=== PATIENT | male | born 1955 | race Caucasian/White ===

== ENCOUNTER → 2023-09-23 | Outpatient (CLI) | payer BC ==
--- NOTE | 2023-09-23 13:31 | P.PAINPG ---
PQRS Measure Charge Sheet Comment: HISTORY OF PRESENT ILLNESS: A 68 yr old male as a referral from Dr Goodwin presents today w severe and chronic LBP x 1 yr secondary to DDD, spondylosis and facet arthropathy without myelopathy for evaluation. Pt states pain level is provoked at 7 /10 in intensity, constant, localized in the lumbar spine, predominantly axial, achy in character w occasional shooting pain towards the BL hips, R> L. Pain is provoked by twisting. Pain is alleviated by medications (Neurontin, Ibu), Pt x 6 wks which ended in Aug 2023, alternating heat & ice, repositioning and rest. PMH: OA, Asthma, HTN, CHF, GERD, BPH PSH: Tonsillectomy, Nephrolithiasis, L Ankle Surgery, L Foot Reconstruction, R Great Toe Surgery SH: Negative x3. Ret[employer] FH: Mo- Lymphoma. Fa- CVA. All: See list Meds: See list REVIEW OF ORGAN SYSTEMS: CONSTITUTIONAL: No fevers or chills. No recent weight loss. NEUROLOGICAL: + numbness and tingling along the distal extremities. No seizure disorders or headaches. MUSCULOSKELETAL: + pain PSYCHIATRIC: Denies current depression or suicidal thoughts. Physical Examinations : Constitutional : Cooperative , not in acute distress . Neurologic : Cranial nerve II to XII intact. No focal neurological deficits. Psychiatric : alert & oriented x 3. Matching mood & appropriate affect. Judgment & insight intact. Musculoskeletal : Cervical Spine Motor strength in the deltoid and biceps: Normal right side. Normal Left side Motor strength biceps and the wrist extensors: Normal right side . Normal left side Motor strength in the triceps muscle: Normal right side. Normal left side Deep tendon reflexes: Normal at the biceps. Normal at Brachioradialis. Normal at triceps Vertebral body tenderness to deep palpation over Cervical facet loading test: positive bilaterally Spurling test: positive bilaterally Neck distraction test: positive bilaterally Alee sign: positive bilaterally Lumbar spine Motor strength lower extremities ,thigh and legs 5/5 Right side , 5/5 Left side Deep tendon reflexes : Normal Knee Jerk. Normal Ankle Jerk Vertebral body tenderness over L3 Darling Test positive over L2-L3 Lumbar facet Loading Test: positive Right / positive Left Range of motion of the lumbar spine Flexion 30 degrees, extension 10 degrees Straight Leg Raise test: Left/ Right positive at degree Nathen test: positive right / positive left. Severe tenderness over the Sacroiliac joint on the Right / Left sides Gaenslen test: positive bilaterally Seated flexion test: positive bilaterally. Sacral spine : Severe tenderness over the Sacroiliac joint: right side / left side Range of motion: Flexion of the lumbar spine <60 degrees Range of motion: Extension of the lumbar spine <20 degrees Gaenslen's Test positive Nathen test: positive right side / left side Thigh Thrust Test Sacral Thrust Test Imaging: MRI noncontrast of the lumbar spine from 04/11/23 reviewed Assessment/ Plan : Lumbar DDD Recommendation of VANNESA L2-L3 #1. May need a series of injections for optimal pain relief. Risks, benefits of procedure discussed and patient verbalized understanding. Admits to anti- coagulant use or medical history of diabetes. Protocol for discontinuation/ continuation of medications cynthia procedure discussed. All questions answered. I have spent greater than 30 minutes on patient care today. Dr Serrano was available by phone for the evaluation of this patient. The time was used to review the medical records including relevant urine studies and Prescription history (MAPs), review of the available imaging, evaluation and examination of the patient, coordination of care with the medical staff and if applicable referring physicians, as well as creation of the medical record Controlled Substance Measures - Controlled Substance Measures Is patient prescribed a controlled substance at discharge?: No
[2023-09-23 13:51] VITALS: BP 156/97; PULSE 87; RESP 15; TEMP 98.1
== END ==
LOC: PNWHC3 12:43
PROVIDERS: ATTEND Specialist
DX: M51.16 Intervertebral disc disorders with radiculopathy, lumbar region (principal); M19.90 Unspecified osteoarthritis, unspecified site; J45.909 Unspecified asthma, uncomplicated; I11.0 Hypertensive heart disease with heart failure; I50.9 Heart failure, unspecified; N40.0 Benign prostatic hyperplasia without lower urinary tract symptoms; K21.9 Gastro-esophageal reflux disease without esophagitis
CPT/HCPCS: 99211

== ENCOUNTER → 2023-10-09 | Day surgery (SDC) | payer BC ==
[~2023-10-09] MED LIST: IOPAMIDOL M200 10 ML VIAL ONE; LACTATED RINGERS 1,000 ML IV SCH; ROPIVACAINE 5MG/ML 20ML VIAL ONE; methylPREDNISolone ACETATE 80 MG/ML 1 ML VIAL ONE
[2023-10-09 08:43] VITALS: TEMP 97.3
--- NOTE | 2023-10-09 09:07 | P.PCN ---
Description of Procedure: PREOPERATIVE DIAGNOSIS: 1- Lumbar Degenerative Disc Diseases 2-Lumbar spondylosis with Facet arthropathy without myelopathy. 3-lumbar spinal stenosis POSTOPERATIVE DIAGNOSIS: 1-lumbar degenerative disc disease. 2-lumbar spondylosis with facet arthropathy without myelopathy. 3-lumbar spinal stenosis. PROCEDURE Injection of radial contrast material into L2-3 interspace, interpretation of epidurogram, injection of steroid at L2-3 epidural space under fluoroscopic guidance. ANESTHESIA: Lidocaine 1% subcutaneously. In OR continuous pulse ox, EKG, blood pressure and volleyball complication was maintained with the patient. EBL: Minimal PROCEDURE INDICATION: Before the procedure were discussed with the patient det brittany procedure, alternatives, complications including infection, bleeding, nerve damage, paralysis all of which could be permanent. Patient understands and all questions were answered. PROCEDURE DESCRIPTION : After getting consent, patient in OR in prone position. Back was prepped with chlorhexidine and draped in sterile fashion. After injecting 10 mL of 1% lidocaine subcutaneously, a 20-gauge Tuohy needle was introduced at L2-3 interspace with loss of resistance technique using a syringe filled with air. Negative CSF, negative blood, negative paresthesia. Needle position was confirmed with AP and lateral view of the fluoroscope. After repeat negative aspiration 2 mL of Omnipaque 200 water soluble contrast was injected. Contrast was noted in the epidural space. No contrast was noted into intrathecal or intravascular space. After repeat negative aspiration 6 mL solution was injected intermittently which consists of 5 mL of preservative-free normal saline mixed with 1 mL of 80 mg Depo-Medrol. Needle was withdrawn intact. Skin was cleansed and Band-Aids was applied. DISPOSITION / PLANS: The patient tolerated the procedure well. No complication. The patient was placed in a supine position and transferred to the recovery area in a stable condition for observation. There was no evidence of lower extremity motor or sensory deficit after the procedure. Patient was discharged from the recovery room after meeting discharge criteria. Home discharge instructions were given to the patient by the staff. The patient was reexamined prior to discharge. The patient will schedule a follow up in the clinic in 2-4 weeks.
[2023-10-09 09:14] VITALS: BP 129/89; PULSE 60; RESP 14
--- NOTE | 2023-10-09 10:33 | FL ---
EXAMINATION TYPE: FL guided pain mgmt statistic Intraoperative/procedural fluoroscopic services were provided. Total fluoroscopy time is 30 seconds with a total of 2 submitted images to PACS. Please see the operative/procedural note for further details. DAP: [id number] mGym2
== END ==
LOC: ORPAIN 07:59
PROVIDERS: ATTEND Pain Medicine Interventional Pain Medicine
DX: M51.36 Other intervertebral disc degeneration, lumbar region (principal); M47.816 Spondylosis without myelopathy or radiculopathy, lumbar region; M48.061 Spinal stenosis, lumbar region without neurogenic claudication; Z88.1 Allergy status to other antibiotic agents
CPT/HCPCS: 62323; J1040; Q9966; J2795

== ENCOUNTER → 2023-11-06 | Outpatient (CLI) | payer BC ==
[2023-11-06 10:06] VITALS: BP 128/74; PULSE 76; RESP 15; TEMP 98.4
--- NOTE | 2023-11-06 13:53 | P.PAINPG ---
Objective - Vital Signs Vital signs: Intake & Output 11/05/23 11/06/23 11/06/23 18:59 06:59 18:59 Weight 220 kg PQRS Measure Charge Sheet Comment: HISTORY OF PRESENT ILLNESS: A 68 yr old male presents today w severe and chronic LBP x 1 yr secondary to DDD, spondylosis and facet arthropathy without myelopathy for evaluation s/p VANNESA L2-L3 #1. Pt states he experienced 60% pain relief x 1 wks s/p procedure. Pt states pain level is provoked at 7 /10 in intensity, constant, localized in the lumbar spine, predominantly axial, achy in character without shooting pain. Pain is provoked by twisting. Pain is alleviated by medications, PT x 6 wks which ended in Aug 2023, alternating heat & ice, repositioning and rest. Oswestry axial pain score of 26. Interventional procedures include VANNESA L2-L3 x1 Medications include Neurontin, Ibu REVIEW OF ORGAN SYSTEMS: CONSTITUTIONAL: No fevers or chills. No recent weight loss. NEUROLOGICAL: + numbness and tingling along the distal extremities. No seizure disorders or headaches. MUSCULOSKELETAL: + pain PSYCHIATRIC: Denies current depression or suicidal thoughts. Physical Examinations : Constitutional : Cooperative , not in acute distress . Neurologic : Cranial nerve II to XII intact. No focal neurological deficits. Psychiatric : alert & oriented x 3. Matching mood & appropriate affect. Judgment & insight intact. Musculoskeletal : Cervical Spine Motor strength in the deltoid and biceps: Normal right side. Normal Left side Motor strength biceps and the wrist extensors: Normal right side . Normal left side Motor strength in the triceps muscle: Normal right side. Normal left side Deep tendon reflexes: Normal at the biceps. Normal at Brachioradialis. Normal at triceps Vertebral body tenderness to deep palpation over Cervical facet loading test: positive bilaterally Spurling test: positive bilaterally Neck distraction test: positive bilaterally Alee sign: positive bilaterally Lumbar spine Motor strength lower extremities ,thigh and legs 5/5 Right side , 5/5 Left side Deep tendon reflexes : Normal Knee Jerk. Normal Ankle Jerk Vertebral body tenderness Darling Test positive Lumbar facet Loading Test: positive BL L4-L5, L5-S1 Range of motion of the lumbar spine Flexion 30 degrees, extension 10 degrees Straight Leg Raise test: Left/ Right positive at degree Nathen test: positive right / positive left. Severe tenderness over the Sacroiliac joint on the Right / Left sides Gaenslen test: positive bilaterally Seated flexion test: positive bilaterally. Sacral spine : Severe tenderness over the Sacroiliac joint: right side / left side Range of motion: Flexion of the lumbar spine <60 degrees Range of motion: Extension of the lumbar spine <20 degrees Gaenslen's Test positive Nathen test: positive right side / left side Thigh Thrust Test Sacral Thrust Test Imaging: MRI noncontrast of the lumbar spine from 04/11/23 reviewed Assessment/ Plan : Lumbar DDD Recommendation of BL MBB L3-L5 #1.. May need a series of injections, up until RFA, for optimal pain relief. Risks, benefits of procedure discussed and patient verbalized understanding. Admits to anti- coagulant use or medical history of diabetes. Minimal anesthesia including Versed and Fentanyl may be provided if clinically indicated. Protocol for discontinuation/ continuation of medications cynthia procedure discussed. All questions answered. I have spent greater than 30 minutes on patient care today. Dr Serrano was available by phone for the evaluation of this patient. The time was used to review the medical records including relevant urine studies and Prescription history (MAPs), review of the available imaging, evaluation and examination of the patient, coordination of care with the medical staff and if applicable referring physicians, as well as creation of the medical record PQRS Narrative: Hx Alcohol Use (MH) No Home Medications: Ambulatory Orders Budesonide-Formot 160-4.5 Mcg [Symbicort 160-4.5 Mcg Inhaler] 2 puff INHALATION DAILY PRN 10/07/23 Ibuprofen [Motrin Ib] 400 mg PO Q6H PRN 10/07/23 Multivitamins, Thera [Multivitamin (formulary)] 1 tab PO QAM 10/07/23 Tamsulosin HCl [Flomax] 0.4 mg PO QAM 10/07/23 Vit C/E/Zn/Coppr/Lutein/Zeaxan [Preservision Areds 2 Softgel] 1 cap PO QAM 10/07/23 hydroCHLOROthiazide 25 mg PO QAM 10/07/23 Controlled Substance Measures - Controlled Substance Measures Is patient prescribed a controlled substance at discharge?: No
== END ==
LOC: PNWHC3 09:20
PROVIDERS: ATTEND Specialist
DX: M47.817 Spondylosis without myelopathy or radiculopathy, lumbosacral region (principal); M51.37 Other intervertebral disc degeneration, lumbosacral region; Z88.1 Allergy status to other antibiotic agents
CPT/HCPCS: 99211

== ENCOUNTER 2023-11-14 07:11 | Day surgery (SDC) | payer BC ==
[2023-11-11 09:58] VITALS: BMI 31.5
[2023-11-14] MEDS: LACTATED RINGERS 1,000 ML IV SCH ×2 (07:59→08:18)
[2023-11-14 08:13] VITALS: RESP 16; TEMP 96.9
[2023-11-14] MEDS ORDERED: MIDAZOLAM 2 MG/2 ML VIAL ONE (08:19)
[2023-11-14] MEDS ORDERED: fentaNYL (PF) 50 MCG/ML 2 ML AMP ONE (08:19)
[2023-11-14] MEDS ORDERED: ROPIVACAINE 5MG/ML 20ML VIAL ONE (08:22)
[2023-11-14] MEDS ORDERED: IV FLUID CONTINUATION 1,000 ML IV ONE (08:46)
--- NOTE | 2023-11-14 08:46 | P.PCN ---
Description of Procedure: Preprocedure diagnosis. 1. Lumbar spondylosis with facet joint arthropathy without myelopathy. 2. Lumbar degenerative disc disease. Postprocedure diagnosis. As above. Procedure done. Bilateral diagnostic block with local anesthetics at L3, L4, L5 medial branch to target the facet joint L4- 5 and L5-S1 with fluoroscopic guidance (fluoroscopy images are available in the radiology department) . Anesthesia. As per anesthesia department. In OR, continuous pulse ox, EKG, blood pressure and verbal communication was maintained. Blood loss. Minimal. Indication. The patient has low back pain secondary to lumbar facet joint arthropathy. Discussed the procedure and alternative and complications which includes infection, bleeding, nerve damage, paralysis ,aggravation of pain. Patient understands and all questions were answered. Patient iunderstands that if any pain relief occurs it will last for a few hours to a few days maximum. Procedure description. After getting consent patient was taken in the OR in prone position. Back prepped with chlorhexidine and draped in sterile fashion. After injecting 5 mL of plain 1% lidocaine subcutaneously, a 22-gauge spinal needle was introduced under tunnel vision of the fluoroscope at the junction of the superior articular process with RIGHT ala of the sacrum. With slight oblique fluoroscope, after injecting 5 mL of plain 1% lidocaine subcutaneously, a 22-gauge spinal needle was introduced under tunnel vision of the fluoroscope at the junction of the superior articular process with RIGHT L5 transverse process, junction of the superior articular process with the RIGHT L4 transverse process. Negative CSF, negative blood, negative paresthesia. After needle po sition confirmation by AP and crosstable lateral view, after negative aspiration, half milliliters of 0.5% ropivacaine were injected at each point. In exactly same way, LEFT sided injections were done at the following 3 points. Junction of the superior articular process with left ala of the sacrum, junction of the superior articular process with the left L5 transverse process, junction of the superior articular process with left L4 transverse process using 0.5 mL of 0.5% preservative-free ropivacaine at each point. Spinal needles were taken out and bandages were applied. Disposition. Patient tolerated the procedure well. No complication. Discharged home in stable condition.
--- NOTE | 2023-11-14 09:20 | FL ---
Fluoroscopy INDICATION: Pain FINDINGS: Fluoroscopy time: 1 minute 18 seconds. Total dose area product (DAP) in uGy*m?, mGy*cm? (or similar): 0.42151 Images obtained: 4. IMPRESSION: 1. Documentation of fluoroscopy.
[2023-11-14 09:34] VITALS: BP 142/92; PULSE 57
== END 2023-11-14 09:30 | disposition home or self-care (01) ==
LOC: ORPAIN 07:11
PROVIDERS: ATTEND Pain Medicine Interventional Pain Medicine
DX: M47.816 Spondylosis without myelopathy or radiculopathy, lumbar region (principal); M51.36 Other intervertebral disc degeneration, lumbar region; I10 Essential (primary) hypertension; J45.909 Unspecified asthma, uncomplicated; G47.33 Obstructive sleep apnea (adult) (pediatric); Z79.899 Other long term (current) drug therapy; Z79.51 Long term (current) use of inhaled steroids
CPT/HCPCS: 64493; 64494 ×2; J2250; J3010; J2795

== ENCOUNTER → 2023-12-01 | Outpatient (CLI) | payer BC ==
[2023-12-01 08:34] VITALS: BP 134/84; PULSE 91; RESP 15; TEMP 98.5
--- NOTE | 2023-12-01 14:35 | P.PAINPG ---
PQRS Measure Charge Sheet Comment: HISTORY OF PRESENT ILLNESS: A 68 yr old male presents today w severe and chronic LBP x 1 yr secondary to DDD, spondylosis and facet arthropathy without myelopathy for evaluation s/p BL MBB L3-L5 #1. Pt states he experienced 80 % pain relief x 1 wk s/p procedure. Pt states pain level is provoked at 6 /10 in intensity, constant, localized in the lumbar spine, predominantly axial, achy in character without shooting pain. Pain is provoked by twisting. Pain is alleviated by medications, PT x 6 wks which ended in Aug 2023, alternating heat & ice, repositioning and rest. Oswestry axial pain score of 25. Interventional procedures include AVNNESA L2-L3 x1, BL MBB L3-L5 x1 Medications include Neurontin, Ibu REVIEW OF ORGAN SYSTEMS: CONSTITUTIONAL: No fevers or chills. No recent weight loss. NEUROLOGICAL: + numbness and tingling along the distal extremities. No seizure disorders or headaches. MUSCULOSKELETAL: + pain PSYCHIATRIC: Denies current depression or suicidal thoughts. Physical Examinations : Constitutional : Cooperative , not in acute distress . Neurologic : Cranial nerve II to XII intact. No focal neurological deficits. Psychiatric : alert & oriented x 3. Matching mood & appropriate affect. Judgment & insight intact. Musculoskeletal : Cervical Spine Motor strength in the deltoid and biceps: Normal right side. Normal Left side Motor strength biceps and the wrist extensors: Normal right side . Normal left side Motor strength in the triceps muscle: Normal right side. Normal left side Deep tendon reflexes: Normal at the biceps. Normal at Brachioradialis. Normal at triceps Vertebral body tenderness to deep palpation over Cervical facet loading test: positive bilaterally Spurling test: positive bilaterally Neck distraction test: positive bilaterally Alee sign: positive bilaterally Lumbar spine Motor strength lower extremities ,thigh and legs 5/5 Right side , 5/5 Left side Deep tendon reflexes : Normal Knee Jerk. Normal Ankle Jerk Vertebral body tenderness Darling Test positive Lumbar facet Loading Test: positive BL L4-L5, L5-S1 Range of motion of the lumbar spine Flexion 30 degrees, extension 10 degrees Straight Leg Raise test: Left/ Right positive at degree Nathen test: positive right / positive left. Severe tenderness over the Sacroiliac joint on the Right / Left sides Gaenslen test: positive bilaterally Seated flexion test: positive bilaterally. Sacral spine : Severe tenderness over the Sacroiliac joint: right side / left side Range of motion: Flexion of the lumbar spine <60 degrees Range of motion: Extension of the lumbar spine <20 degrees Gaenslen's Test positive Nathen test: positive right side / left side Thigh Thrust Test Sacral Thrust Test Imaging: MRI noncontrast of the lumbar spine from 04/11/23 reviewed Assessment/ Plan : Lumbar DDD Recommendation of BL MBB L3-L5 #2. May need a series of injections, up until RFA, for optimal pain relief. Risks, benefits of procedure discussed and patient verbalized understanding. Admits to anti- coagulant use or medical history of diabetes. Minimal anesthesia including Versed and Fentanyl may be provided if clinically indicated. Protocol for discontinuation/ continuation of medications cynthia procedure discussed. All questions answered. I have spent greater than 30 minutes on patient care today. Dr Serrano was available by phone for the evaluation of this patient. The time was used to review the medical records including relevant urine studies and Prescription history (MAPs), review of the available imaging, evaluation and examination of the patient, coordination of care with the medical staff and if applicable referring physicians, as well as creation of the medical record PQRS Narrative: Hx Alcohol Use (MH) No Home Medications: Ambulatory Orders Budesonide-Formot 160-4.5 Mcg [Symbicort 160-4.5 Mcg Inhaler] 2 puff INHALATION DAILY PRN 10/07/23 Ibuprofen [Motrin Ib] 400 mg PO Q6H PRN 10/07/23 Multivitamins, Thera [Multivitamin (formulary)] 1 tab PO QAM 10/07/23 Tamsulosin HCl [Flomax] 0.4 mg PO QAM 10/07/23 Vit C/E/Zn/Coppr/Lutein/Zeaxan [Preservision Areds 2 Softgel] 1 cap PO QAM 10/07/23 hydroCHLOROthiazide 25 mg PO QAM 10/07/23 Fluticasone Nasal Jay [Flonase Nasal Jay] 1 spray NASAL DAILY 11/14/23 Gabapentin [Neurontin] 300 mg PO BID 11/14/23 Controlled Substance Measures - Controlled Substance Measures Is patient prescribed a controlled substance at discharge?: No
== END ==
LOC: PNWHC3 07:40
PROVIDERS: ATTEND Specialist
DX: M51.37 Other intervertebral disc degeneration, lumbosacral region (principal); Z88.8 Allergy status to other drugs, medicaments and biological substances
CPT/HCPCS: 99211

== ENCOUNTER 2023-12-12 07:34 | Day surgery (SDC) | payer BC ==
[2023-12-12] MEDS: LACTATED RINGERS 1,000 ML IV SCH (08:06)
[2023-12-12 08:17] VITALS: TEMP 97.5
[2023-12-12] MEDS ORDERED: fentaNYL (PF) 50 MCG/ML 2 ML AMP ONE (09:01)
[2023-12-12] MEDS ORDERED: MIDAZOLAM 2 MG/2 ML VIAL ONE (09:01)
[2023-12-12] MEDS ORDERED: ROPIVACAINE 5MG/ML 20ML VIAL ONE (09:03)
[2023-12-12] MEDS ORDERED: methylPREDNISolone ACETATE 40 MG/ML 1 ML VIAL ONE (09:03)
[2023-12-12] MEDS: LACTATED RINGERS 1,000 ML IV ONE (09:25)
--- NOTE | 2023-12-12 09:31 | P.PCN ---
Description of Procedure: Preprocedure diagnosis. 1. Lumbar spondylosis with facet joint arthropathy without myelopathy. 2. Lumbar degenerative disc disease. Postprocedure diagnosis. As above. Procedure done. Bilateral diagnostic block with local anesthetics at L3, L4, L5 medial branch to target the facet joint L4- 5 and L5-S1 with fluoroscopic guidance (fluoroscopy images are available in the radiology department) . Anesthesia. As per anesthesia department/ Moderate sedation with intravenous Versed 2 mg and fentanyl and local infiltration with local anesthetics. In OR, continuous pulse ox, EKG, blood pressure and verbal communication was maintained. Blood loss. Minimal. Indication. The patient has low back pain secondary to lumbar facet joint arthropathy. Discussed the procedure and alternative and complications which includes infection, bleeding, nerve damage, paralysis ,aggravation of pain. Patient understands and all questions were answered. Patient iunderstands that if any pain relief occurs it will last for a few hours to a few days maximum. Procedure description. After getting consent patient was taken in the OR in prone position. Back prepped with chlorhexidine and draped in sterile fashion. After injecting 5 mL of plain 1% lidocaine subcutaneously, a 22-gauge spinal needle was introduced under tunnel vision of the fluoroscope at the junction of the superior articular process with RIGHT ala of the sacrum. With slight oblique fluoroscope, after injecting 5 mL of plain 1% lidocaine subcutaneously, a 22-gauge spinal needle was introduced under tunnel vision of the fluoroscope at the junction of the superior articular process with RIGHT L5 transverse process, junction of the superior articular process with the RIGHT L4 transverse process. Negative CSF, negative blood, negative paresthesia. After needle position confirmation by AP and crosstable lateral view, after negative aspiration, half milliliters of solution were injected at each point. Total 1- 1/2 mL of solution was injected on the right side which consists of 0.5% ropivacaine mixed with 20 mg of Depo-Medrol. In exactly same way, LEFT sided injections were done at the following 3 points. Junction of the superior articular process with left ala of the sacrum, junction of the superior articular process with the left L5 transverse process, junction of the superior articular process with left L4 transverse process using 0.5 mL of solution at each point. Total 1-1/2 mL of solution was injected on the left side which consists of 0.5% ropivacaine mixed with 20 mg of Depo-Medrol. Spinal needles were taken out and bandages were applied. Disposition. Patient tolerated the procedure well. No complication. Discharged home in stable condition.
--- NOTE | 2023-12-12 09:46 | FL ---
EXAMINATION TYPE: FL guided pain mgmt statistic Intraoperative/procedural fluoroscopic services were provided. Total fluoroscopy time is 47 seconds with a total of 4 submitted images to PACS. Please see the operative/procedural note for further details. DAP: [id number] mGym2
[2023-12-12 09:53] LABS: Glucose,Whole Blood 115 mg/dL (70-110)
[2023-12-12 09:56] VITALS: BP 141/90; PULSE 58; RESP 16
== END 2023-12-12 10:04 | disposition home or self-care (01) ==
LOC: ORPAIN 07:34
PROVIDERS: ATTEND Pain Medicine Interventional Pain Medicine
DX: M51.36 Other intervertebral disc degeneration, lumbar region (principal); M47.816 Spondylosis without myelopathy or radiculopathy, lumbar region; I10 Essential (primary) hypertension; J45.909 Unspecified asthma, uncomplicated; N20.0 Calculus of kidney; H35.30 Unspecified macular degeneration; H40.9 Unspecified glaucoma; Z79.51 Long term (current) use of inhaled steroids; Z79.899 Other long term (current) drug therapy; Z88.1 Allergy status to other antibiotic agents
CPT/HCPCS: 64493; 64494 ×2; J2250; J1030; J2001; J3010; J2795

== ENCOUNTER 2024-01-13 06:02 | Day surgery (SDC) | payer BC ==
[2024-01-09 09:33] VITALS: BMI 31.5
[2024-01-13] MEDS: LACTATED RINGERS 1,000 ML IV SCH (06:48)
[2024-01-13 06:54] VITALS: TEMP 96.9
[2024-01-13] MEDS ORDERED: ONDANSETRON 4 MG/2 ML VIAL ONE (07:31)
[2024-01-13] MEDS ORDERED: MIDAZOLAM 2 MG/2 ML VIAL ONE (07:36)
[2024-01-13] MEDS ORDERED: ROPIVACAINE 5MG/ML 20ML VIAL ONE (07:36)
--- NOTE | 2024-01-13 07:58 | P.PCN ---
Date of Procedure: 01/13/24 Operative Findings: PREOPERATIVE DIAGNOSIS: Lumbar Facet Arthropathy without myelopathy POSTOPERATIVE DIAGNOSIS: Same PROCEDURES: RIGHT/LEFT Radiofrequency thermocoagulation of L4-5, L5-S1 medial branches, with fluoroscopic guidance ANESTHESIA: Patient re-evaluated immediately prior to sedation Medication Administered by: Nurse Sedation Type: Moderate sedation 2mg versed and 4mg zofran (no fentanyl due to nausea during previous procedure) Sedation Supervision start time: 735 Sedation Supervision end time: 756 EBL: Minimal Imaging: Fluoroscopy was used, images where saved to the medical record PROCEDURE INDICATION: The patient with low back pain secondary to lumbar facet arthropathy who had more than 50% relief of pain with previous diagnostic lumb ar medial branch block with local anesthetic. PROCEDURE DESCRIPTION / TECHNIQUE: The patient was seen and identified in the preoperative area. Risks, benefits, complications, including but not limited to risk of infection, bleeding, allergic reactions to the medications and no complete pain relief, and alternatives were discussed with the patient, the patient agreed to proceed with the procedure and signed the consent. IV was started. Vital signs remained stable throughout the procedure. Patient was taken to the OR and time out was completed. The patient was placed in the prone position on the procedure table. The lumber area was prepped and draped in the usual sterile fashion. Vital signs were closely monitored during the procedure. IV sedation was used during the procedure to decrease patient anxiety. Using AP and then oblique fluoroscopy, the eye of the Brooks dog corresponding to the connection between the superior and transverse articular processes of L4, L5, and sacral Ala were identified, marked, and localized with 1% lidocaine. Subsequently, a 20 [id number] radiofrequency cannula with a 10-mm active tip was advanced guided by fluoroscopy to the junction of the pedicle and transverse process of each identified level. Each site then underwent sensory testing at 50 Hz and 0 to 1 volt and motor testing at 2.5 Hz and 0 to 3 volt with local s timulation, no radicular symptoms sensed by the patient and no obvious motor stimulation noted. Thereafter the tested sites underwent radiofrequency thermocoagulation at 80 degrees celsius for 90 seconds after injecting 2 ml of PF lidocaine 1% at each site. Then after the thermocoagulation was done, 1 ml of the block solution containing ropivaciane 0.5% was injected at the lesioned sites after negative aspiration of CSF and blood and with no paresthesias. Cannulas were retracted. At the end of the procedure, the skin was cleansed and bandages were applied. COMPLICATIONS: No acute complications. DISPOSITION / PLANS: The patient was placed in a supine position and transferred to the recovery area in a stable condition for observation and was discharged from the recovery room after meeting discharge criteria. Home discharge instructions given to the patient by the staff. The patient was reexamined prior to discharge. Patient will follow up as directed.
[2024-01-13] MEDS: IV FLUID CONTINUATION 1,000 ML IV ONE (08:02)
[2024-01-13 08:08] VITALS: RESP 16
[2024-01-13 08:45] VITALS: BP 122/80; PULSE 68
--- NOTE | 2024-01-13 12:09 | FL ---
EXAMINATION TYPE: FL guided pain mgmt statistic Intraoperative/procedural fluoroscopic services were provided. Total fluoroscopy time is 8.1 seconds with a total of 6 submitted images to PACS. Please se e the operative/procedural note for further details. DAP: [id number] mGym2
== END 2024-01-13 08:33 | disposition home or self-care (01) ==
LOC: ORPAIN 06:02
PROVIDERS: ATTEND Hospitalist
DX: M47.816 Spondylosis without myelopathy or radiculopathy, lumbar region (principal); Z88.8 Allergy status to other drugs, medicaments and biological substances
CPT/HCPCS: 64635; 64636 ×2; 99152; J2250; J2795

== ENCOUNTER → 2024-02-02 | Outpatient (CLI) | payer BC ==
[2024-02-02 09:49] VITALS: BP 134/86; PULSE 73; RESP 16; TEMP 98.1
--- NOTE | 2024-02-02 13:56 | P.PAINPG ---
PQRS Measure Charge Sheet Comment: HISTORY OF PRESENT ILLNESS: A 68 yr old male presents today w severe and chronic LBP x 1 yr secondary to DDD, spondylosis and facet arthropathy without myelopathy for evaluation s/p BL RFA L3-L5. Pt states he experienced 75 % pain relief s/p procedure. Pt states pain level is provoked at 6 /10 in intensity, constant, localized in the R lower lumbar spine, predominantly axial, achy in character w shooting pain towards the R buttocks. Pain is provoked by twisting. Pain is alleviated by medications, PT x 6 wks which ended in Aug 2023, alternating heat & ice, repositioning and rest. Oswestry axial pain score of 20. Interventional procedures include VANNESA L2-L3 x1, BL RFA L3-L5 (Jan 2024) Medications include Neurontin, Ibu REVIEW OF ORGAN SYSTEMS: CONSTITUTIONAL: No fevers or chills. No recent weight loss. NEUROLOGICAL: + numbness and tingling along the distal extremities. No seizure disorders or headaches. MUSCULOSKELETAL: + pain PSYCHIATRIC: Denies current depression or suicidal thoughts. Physical Examinations : Constitutional : Cooperative , not in acute distress . Neurologic : Cranial nerve II to XII intact. No focal neurological deficits. Psychiatric : alert & oriented x 3. Matching mood & appropriate affect. Judgment & insight intact. Musculoskeletal : Cervical Spine Motor strength in the deltoid and b iceps: Normal right side. Normal Left side Motor strength biceps and the wrist extensors: Normal right side . Normal left side Motor strength in the triceps muscle: Normal right side. Normal left side Deep tendon reflexes: Normal at the biceps. Normal at Brachioradialis. Normal at triceps Vertebral body tenderness to deep palpation over Cervical facet loading test: positive bilaterally Spurling test: positive bilaterally Neck distraction test: positive bilaterally Alee sign: positive bilaterally Lumbar spine Motor strength lower extremities ,thigh and legs 5/5 Right side , 5/5 Left side Deep tendon reflexes : Normal Knee Jerk. Normal Ankle Jerk Vertebral body tenderness Darling Test positive Lumbar facet Loading Test: positive Range of motion of the lumbar spine Flexion 30 degrees, extension 10 degrees Straight Leg Raise test: Left/ Right positive at degree Nathen test: positive right / positive left. Severe tenderness over the Sacroiliac joint on the Right / Left sides Gaenslen test: positive bilaterally Seated flexion test: positive bilaterally. Sacral spine : Severe tenderness over the Sacroiliac joint: right side / left side Range of motion: Flexion of the lumbar spine <60 degrees Range of motion: Extension of the lumbar spine <20 degrees Gaenslen's Test positive on R Nathen test: positive right side / left side Thigh Thrust Test on R Sacral Thrust Test Imaging: MRI noncontrast of the lumbar spine from 04/11/23 reviewed Assessment/ Plan : Lumbar DDD Recommendation of R SI injection #1. May need a series of injections for optimal pain relief. Risks, benefits of procedure discussed and patient verbalized understanding. Admits to anti- coagulant use or medical history of diabetes. Protocol for discontinuation/ continuation of medications cynthia procedure discussed. All questions answered. I have spent greater than 30 minutes on patient care today. Dr Serrano was available by phone for the evaluation of this patient. The time was used to review the medical records including relevant urine studies and Prescription history (MAPs), review of the available imaging, evaluation and examination of the patient, coordination of care with the medical staff and if applicable referring physicians, as well as creation of the medical record PQRS Narrative: Hx Alcohol Use (MH) No Home Medications: Ambulatory Orders Budesonide-Formot 160-4.5 Mcg [Symbicort 160-4.5 Mcg Inhaler] 2 puff INHALATION DAILY PRN 10/07/23 Ibuprofen [Motrin Ib] 400 mg PO Q6H PRN 10/07/23 Multivitamins, Thera [Multivitamin (formulary)] 1 tab PO QAM 10/07/23 Tamsulosin HCl [Flomax] 0.4 mg PO QAM 10/07/23 Vit C/E/Zn/Coppr/Lutein/Zeaxan [Preservision Areds 2 Softgel] 1 cap PO QAM 10/07/23 hydroCHLOROthiazide 25 mg PO QAM 10/07/23 Fluticasone Nasal [place] [Flonase Nasal [place]] 1 spray NASAL DAILY 11/14/23 lisinopriL [Zestril] 10 mg PO DAILY 01/09/24 Controlled Substance Measures - Controlled Substance Measures Is patient prescribed a controlled substance at discharge?: No
== END ==
LOC: PNWHC3 07:44
PROVIDERS: ATTEND Specialist
DX: M51.36 Other intervertebral disc degeneration, lumbar region (principal); Z88.8 Allergy status to other drugs, medicaments and biological substances
CPT/HCPCS: 99211

== ENCOUNTER 2024-02-12 06:20 | Day surgery (SDC) | payer BC ==
[2024-02-11 08:53] VITALS: BMI 31.8
[~2024-02-12 06:20] MED LIST changes: -IOPAMIDOL M200 10 ML VIAL ONE; -ROPIVACAINE 5MG/ML 20ML VIAL ONE; -methylPREDNISolone ACETATE 80 MG/ML 1 ML VIAL ONE
[2024-02-12] MEDS ORDERED: ROPIVACAINE 5MG/ML 20ML VIAL ONE (07:43)
[2024-02-12] MEDS ORDERED: IOPAMIDOL M200 10 ML VIAL ONE (07:43)
[2024-02-12] MEDS ORDERED: methylPREDNISolone ACETATE 40 MG/ML 1 ML VIAL ONE (07:43)
--- NOTE | 2024-02-12 07:50 | P.PCN ---
Date of Procedure: 02/12/24 Procedure(s) Performed: Procedure= Right sacroiliac joints steroid injection under fluoroscopy guidance (fluoroscopy image stored on file in the radiology Department ) Preoperative diagnosis= 1-right sacroiliitis 2-lumbar degenerative disc disease 3-lumbar facet arthropathy Postoperative diagnosis=Same as preop Diagnosis . Complication = none Condition= stable Anesthesia= local anesthesia with ropivacaine 0.5% 2 ml only Indication for the procedure= patient complaining of low back pain , examination was positive for severe tenderness over the right sacroiliac joints ,and patient diagnosed with sacroiliitis, for this reason he was good candidate for sacroiliac joint steroid injection. Description of the procedure= procedure risk and benefits discussed with the patient, including but not limited, risk of infection and bleeding, and ALLERGIC reaction to the medication and not complete pain relief and patient agreed with the preceding patient taken to the operating room, placed in prone position or standard monitors applied to the patient then after induction of anesthesia back prepped with chlorhexidine 3 times , Then under strict sterile technique, I did the right sacroiliac joint the which was identified under fluoroscopy guidance been local infiltration of the skin and subcu interstitial with lidocaine 1% then 22-gauge Quincke Needle advanced slowly under fluoroscopy and placed in the right sacroiliac joint needle placement confirmed with AP and oblique and lateral view, then after that Isovue 200 one mL injected which confirmed the correct needle placement with the appropriate arthrogram of the sacroiliac joint, and after appropriate needle placement confirmed and after negative aspiration, or heme , then Ropivacaine 0.5% 3 mL, and 40 mg of Depo-Medrol mixed together and injected in the right sacroiliac joint after negative aspiration patient tolerated the procedure well without any complication.
[2024-02-12 07:53] VITALS: RESP 16
--- NOTE | 2024-02-12 08:19 | FL ---
EXAMINATION TYPE: FL guided pain mgmt statistic DATE OF EXAM: 02/12/2024 FLUOROSCOPY SI JOINT INJECTION, 13 SECS FL. DAP 0.075 mGycm2. One image submitted.
[2024-02-12 08:40] VITALS: BP 121/76; PULSE 66
== END 2024-02-12 08:20 | disposition home or self-care (01) ==
LOC: ORPAIN 06:20
PROVIDERS: ATTEND Specialist
DX: M46.1 Sacroiliitis, not elsewhere classified (principal); M51.36 Other intervertebral disc degeneration, lumbar region; M47.816 Spondylosis without myelopathy or radiculopathy, lumbar region; Z88.1 Allergy status to other antibiotic agents
CPT/HCPCS: 27096; Q9966; J2795; J1010

== ENCOUNTER → 2024-03-03 | Outpatient (CLI) | payer BC ==
[2024-03-03 08:04] VITALS: BP 130/85; PULSE 84; RESP 16; TEMP 97.8
--- NOTE | 2024-03-03 14:41 | P.PAINPG ---
PQRS Measure Charge Sheet Comment: HISTORY OF PRESENT ILLNESS: A 68 yr old male presents today w severe and chronic LBP x 1 yr secondary to DDD, spondylosis and facet arthropathy without myelopathy for evaluation s/p R SI injection #1. Pt states he experienced 75 % pain relief s/p procedure. Pt states pain level is provoked at 3 /10 in intensity, intermittent, localized in the R lower lumbar spine, predominantly axial, achy in character w shooting pain towards the R hip. Pain is provoked by twisting. Pain is alleviated by medications, PT x 6 wks which ended in Aug 2023, physician guided exercises every other day since Aug 2023, alternating heat & ice, repositioning and rest. Oswestry axial pain score of 16. Interventional procedures include VANNESA L2-L3 x1, BL RFA L3-L5 (Jan 2024), R SI x1 Medications include Neurontin, Ibu REVIEW OF ORGAN SYSTEMS: CONSTITUTIONAL: No fevers or chills. No recent weight loss. NEUROLOGICAL: + numbness and tingling along the distal extremities. No seizure disorders or headaches. MUSCULOSKELETAL: + pain PSYCHIATRIC: Denies current depression or suicidal thoughts. Physical Examinations : Constitutional : Cooperative , not in acute distress . Neurologic : Cranial nerve II to XII intact. No focal neurological deficits. Psychiatric : alert & oriented x 3. Matching mood & appropriate affect. Judgment & insight intact. Musculoskeletal : Cervical Spine Motor strength in the deltoid and biceps: Normal right side. Normal Left side Motor strength biceps and the wrist extensors: Normal right side . Normal left side Motor strength in the triceps muscle: Normal right side. Normal left side Deep tendon reflexes: Normal at the biceps. Normal at Brachioradialis. Normal at triceps Vertebral body tenderness to deep palpation over Cervical facet loading test: positive bilaterally Spurling test: positive bilaterally Neck distraction test: positive bilaterally Alee sign: positive bilaterally Lumbar spine Motor strength lower extremities ,thigh and legs 5/5 Right side , 5/5 Left side Deep tendon reflexes : Normal Knee Jerk. Normal Ankle Jerk Vertebral body tenderness Darling Test positive Lumbar facet Loading Test: positive Range of motion of the lumbar spine Flexion 30 degrees, extension 10 degrees Straight Leg Raise test: Left/ Right positive at degree Nathen test: positive right / positive left. Severe tenderness over the Sacroiliac joint on the Right / Left sides Gaenslen test: positive bilaterally Seated flexion test: positive bilaterally. Sacral spine : Severe tenderness over the Sacroiliac joint: right side / left side Range of motion: Flexion of the lumbar spine <60 degrees Range of motion: Extension of the lumbar spine <20 degrees Gaenslen's Test positive on R Nathen test: positive right side / left side Thigh Thrust Test on R Sacral Thrust Test Imaging: MRI noncontrast of the lumbar spine from 04/11/23 reviewed Assessment/ Plan : Lumbar DDD Will manage residual pain and may RTC on an as needed basis. All questions answered. I have spent greater than 30 minutes on patient care today. Dr Serrano was available by phone for the evaluation of this patient. The time was used to review the medical records including relevant urine studies and Prescription history (MAPs), review of the available imaging, evaluation and examination of the patient, coordination of care with the medical staff and if applicable referring physicians, as well as creation of the medical record PQRS Narrative: Hx Alcohol Use (MH) No Home Medications: Ambulatory Orders Budesonide-Formot 160-4.5 Mcg [Symbicort 160-4.5 Mcg Inhaler] 2 puff INHALATION DAILY PRN 10/07/23 Ibuprofen [Motrin Ib] 400 mg PO Q6H PRN 10/07/23 Multivitamins, Thera [Multivitamin (formulary)] 1 tab PO QAM 10/07/23 Tamsulosin HCl [Flomax] 0.4 mg PO QAM 10/07/23 Vit C/E/Zn/Coppr/Lutein/Zeaxan [Preservision Areds 2 Softgel] 1 cap PO QAM 10/07/23 hydroCHLOROthiazide 25 mg PO QAM 10/07/23 Fluticasone Nasal [place] [Flonase Nasal [place]] 1 spray NASAL DAILY 11/14/23 lisinopriL [Zestril] 10 mg PO DAILY 01/09/24 Controlled Substance Measures - Controlled Substance Measures Is patient prescribed a controlled substance at discharge?: No
== END | disposition home or self-care (01) ==
LOC: PNWHC3 07:20
PROVIDERS: ATTEND Specialist
DX: M51.36 Other intervertebral disc degeneration, lumbar region (principal); Z88.1 Allergy status to other antibiotic agents
CPT/HCPCS: 99211